=== PATIENT | female | born 1965 | race African-American/Black ===

== ENCOUNTER 2020-04-27 05:29 | Observation (INO) ==
[2020-04-27 05:44] LABS: Basophils # 0.1 10*3/uL (0.0-0.2); Basophils % 1.1 % (0.0-0.8); Eosinophils # 0.2 10*3/uL (0.0-0.87); Eosinophils % 3.2 % (0.00-10.9); Hematocrit 36.5 VOL% (35.7-47.0); Hemoglobin 11.9 GM/DL (12.0-16.0); Immature Granulocytes % 0.2 %; Immature Granulocytes Absolute 0.01 #; Lymphocytes # 2.2 10*3/uL (1.4-4.0); Lymphocytes % 47.9 % (21.3-54.2); Mean Corpuscular HGB Conc 32.6 GM/DL (32-36); Mean Corpuscular Volume 91.7 FL (87-102); Mean Platelet Volume 8.4 FL (9.6-12.0); Monocytes % 6.4 % (1.7-12.7); Neutrophils % 41.2 % (38.7-73.9); Platelet Count 301 T/CUMM (130-400); Red Blood Count 3.98 MC/CUMM (3.8-5.5); Red Cell Distribution Width 11.4 % (9.3-17.3); White Blood Count 4.7 T/CUMM (4-12)
[2020-04-27] MEDS ORDERED: DILTIAZEM 25 MG/5 ML VIAL IV ONE (05:45)
[2020-04-27] MEDS ORDERED: DILTIAZEM 50 MG/10 ML VIAL IV STA ×2 (05:50→06:56)
[2020-04-27 05:57] LABS: INR 1.1; PT Patient Result 11.7 SECS (9.8-11.9); Partial Thromboplastin Time 25.9 SECS (23.9-33.8)
[2020-04-27 06:04] LABS: Albumin 3.3 G/DL (3.4-5.0); Bilirubin,Total 0.9 MG/DL (0.2-1.0); Calcium 8.1 MG/DL (8.5-10.1); Osmolality,Calculated 286.5 MOS/KG (273-304); Potassium 3.3 MMOL/L (3.5-5.1); Total Protein 7.2 G/DL (6.4-8.3)
[2020-04-27] MEDS ORDERED: POTASSIUM CHLORIDE 20 MEQ TABLET PO STA (06:09)
[2020-04-27] MEDS ORDERED: DEXTROSE 50% 25 GM/50 ML VIAL IV PRN (08:30)
[2020-04-27] MEDS ORDERED: ACETAMINOPHEN 325 MG TABLET PO PRN (08:30)
[2020-04-27] MEDS ORDERED: ONDANSETRON 4 MG/2 ML VIAL IV PRN (08:30)
[2020-04-27] MEDS ORDERED: MAGNESIUM SULF RIDER 4 GM in PREMIX 1 EACH IV PRN (08:30)
[2020-04-27] MEDS ORDERED: GLUCAGON 1 MG VIAL IM PRN (08:30)
[2020-04-27] MEDS ORDERED: MAGNESIUM SULF RIDER 2 GM in PREMIX 1 EACH IV PRN (08:30)
[2020-04-27] MEDS ORDERED: METOPROLOL TARTRATE 25 MG TABLET PO SCH (13:30)
[2020-04-27] MEDS ORDERED: DICLOFENAC 1% GEL 100 GM TUBE TOP PRN (14:05)
[2020-04-27] MEDS: INSULIN LISPRO 100 UNIT/ML SUBCUT SCH ×3 (14:44→21:09)
[2020-04-27] MEDS: SOTALOL 80 MG TABLET PO SCH ×2 (16:00→21:08)
[2020-04-27] MEDS: APIXABAN 5 MG TABLET PO SCH ×2 (16:00→21:09)
[2020-04-27] MEDS ORDERED: ROSUVASTATIN 10 MG TABLET PO SCH (21:00)
[2020-04-27] MEDS: FLUTICASONE 50 MCG NASAL SPRAY 16 GM BOTTLE BOTH NARES SCH (21:09)
[2020-04-28 06:00] LABS: Basophils # 0.1 10*3/uL (0.0-0.2); Basophils % 1.3 % (0.0-0.8); Eosinophils # 0.1 10*3/uL (0.0-0.87); Hematocrit 35.6 VOL% (35.7-47.0); Hemoglobin 11.3 GM/DL (12.0-16.0); Immature Granulocytes % 0.2 %; Immature Granulocytes Absolute 0.01 #; Lymphocytes # 2.4 10*3/uL (1.4-4.0); Mean Corpuscular HGB Conc 31.7 GM/DL (32-36); Mean Corpuscular Volume 92.7 FL (87-102); Mean Platelet Volume 8.6 FL (9.6-12.0); Monocytes % 8.9 % (1.7-12.7); Neutrophils % 35.6 % (38.7-73.9); Platelet Count 296 T/CUMM (130-400); Red Blood Count 3.84 MC/CUMM (3.8-5.5); Red Cell Distribution Width 11.6 % (9.3-17.3); White Blood Count 4.6 T/CUMM (4-12)
[2020-04-28 06:27] LABS: Atypical Lymphocytes Few; Eosinophils 5 % (0-10); Hypochromasia 1+; Lymphocytes 47 % (20-55); Microcytosis 1+; Segmented Neutrophils 42 % (50-85); Total Cells Counted 100
[2020-04-28 06:28] LABS: Platelet Estimate Normal
[2020-04-28 06:40] LABS: Calcium 8.4 MG/DL (8.5-10.1); Osmolality,Calculated 280.4 MOS/KG (273-304)
[2020-04-28 06:44] LABS: Risk Ratio 2.14; VLDL CHOLESTEROL 16.2 MG/DL
[2020-04-28] MEDS ORDERED: LORATADINE 10 MG TABLET PO SCH (09:00)
[2020-04-28] MEDS: INSULIN LISPRO 100 UNIT/ML SUBCUT SCH (09:31)
[2020-04-28] MEDS: SOTALOL 80 MG TABLET PO SCH (09:32)
[2020-04-28] MEDS: APIXABAN 5 MG TABLET PO SCH (09:33)
[2020-04-28] MEDS: FLUTICASONE 50 MCG NASAL SPRAY 16 GM BOTTLE BOTH NARES SCH (09:46)
[2020-04-28 10:06] VITALS: BP 134/83
== END 2020-04-28 13:41 | disposition home or self-care (01) ==
LOC: EDUNIT# → EDBD → N.EDINP 05:29 → N.ED 05:29 → N.TELES 08:50
PROVIDERS: ADMIT Internal Medicine; ATTEND Internal Medicine